=== PATIENT | male | born 1955 | race Native Hawaiian/Other Pacific Islander ===

== ENCOUNTER → 2020-07-03 | Outpatient (CLI) | payer MEDICARE, OTHER ==
[~2020-07-03] MED LIST: ALLOPURINOL300 MG PO; ASPIRIN 32325 MG/TAB PO; CARVEDILOL12.5 MG PO; DEXILANT PO; METOCLOPRAMIDE H5 MG PO
== END ==
LOC: COL.RAD 08:37
DX: D50.9 Iron deficiency anemia, unspecified (principal)
CPT/HCPCS: Q9967